=== PATIENT | female | born 1950 | race African-American/Black ===

== ENCOUNTER 2020-07-28 11:18 | Inpatient (IN) ==
[2020-07-28] MEDS ORDERED: GLUCAGON 1 MG VIAL IM PRN (12:34)
[2020-07-28] MEDS ORDERED: ONDANSETRON 4 MG/2 ML VIAL IV PRN (12:34)
[2020-07-28] MEDS ORDERED: DEXTROSE 50% 25 GM/50 ML VIAL IV PRN (12:34)
[2020-07-28] MEDS ORDERED: hydrALAZINE 20 MG/1 ML VIAL IV PRN (12:34)
[2020-07-28] MEDS ORDERED: INFLUENZA VIRUS VACCINE 0.5 ML SYRINGE IM ONE (13:10)
[2020-07-28] MEDS ORDERED: PNEUMOCOCCAL VACCINE (13 VALENT) 0.5 ML SYRINGE IM ONE (13:10)
[2020-07-28 13:32] LABS: ABG Base Excess 0.3 MMOL/L (-2.5-2.5); ABG HCO3 24.6 MMOL/L (20-26); ABG Oxygen Saturation 94.5 % (95-100); ABG PCO2 32.8 MM HG (35-48); ABG PH 7.461 (7.35-7.45); ABG PO2 67.5 MM HG (80-95); ABG TCO2 20.6 MMOL/L (23-27)
[2020-07-28 13:36] LABS: Basophils % 0.1 % (0.0-0.8); Hematocrit 37.8 VOL% (35.7-47.0); Hemoglobin 12.6 GM/DL (12.0-16.0); Immature Granulocytes % 1.7 %; Immature Granulocytes Absolute 0.26 #; Lymphocytes # 0.9 10*3/uL (1.4-4.0); Lymphocytes % 5.8 % (21.3-54.2); Mean Corpuscular HGB Conc 33.3 GM/DL (32-36); Mean Corpuscular Volume 88.9 FL (87-102); Mean Platelet Volume 10.8 FL (9.6-12.0); Monocytes % 5.8 % (1.7-12.7); Neutrophils % 86.6 % (38.7-73.9); Platelet Count 298 T/CUMM (130-400); Red Blood Count 4.25 MC/CUMM (3.8-5.5); Red Cell Distribution Width 14.4 % (9.3-17.3); White Blood Count 15.5 T/CUMM (4-12)
[2020-07-28 13:42] LABS: INR 1.2; PT Patient Result 12.4 SECS (9.8-11.9)
[2020-07-28 13:52] LABS: Calcium 9.2 MG/DL (8.5-10.1); Ferritin 1328.8 ng/ml (8-252); Osmolality,Calculated 285.3 MOS/KG (273-304); Total Protein 8.4 G/DL (6.4-8.3)
[2020-07-28 13:59] LABS: Risk Ratio 3.24; Thyroid Stimulating Hormone 0.71 uIU/ml (0.358-3.74); VLDL CHOLESTEROL 30.6 MG/DL
[2020-07-28] MEDS: SODIUM CHLORIDE 0.9% 1,000 ML IV SCH (14:45)
[2020-07-28] MEDS: cefTRIAXone 1,000 MG in SYRINGE 1 EACH IV SCH (16:29)
[2020-07-28] MEDS: ASCORBIC ACID 500 MG TABLET PO SCH (20:22)
[2020-07-28] MEDS: guaiFENesin/DM ER 600-30 MG TABLET PO SCH (20:22)
[2020-07-28] MEDS: ZINC SULFATE 220 MG CAPSULE PO SCH (20:22)
[2020-07-28] MEDS: ACETAMINOPHEN 325 MG TABLET PO PRN (20:23)
[2020-07-28] MEDS ORDERED: ENOXAPARIN 40 MG/0.4 ML SYRINGE SUBCUT SCH (21:00)
[2020-07-28 22:44] LABS: Bilirubin,Urine Negative (Negative); Blood, Urine Moderate mg/dL (Negative); Glucose,Urine (UA) Negative (Negative); Hyaline Casts,Urine 4 /LPF (0-3); Ketones,Urine 5 mg/dL (Negative); Nitrite,Urine Negative (Negative); Protein,Urine 100 MG/DL; RBC,Urine 4 /HPF (0-4); Squamous Epithelial Cell,Urine Occasional /HPF (0-10); Transitional Epi Cells,Urine Occasional /HPF (<1); Urine Appearance Slightly Hazy (Clear); Urine Color Amber (Yellow); Urine Specific Gravity 1.024 (1.001-1.035); WBC,Urine 8 /HPF (0-6)
[2020-07-29] MEDS: SODIUM CHLORIDE 0.9% 1,000 ML IV SCH ×2 (01:00→17:59)
[2020-07-29 03:50] LABS: Basophils % 0.2 % (0.0-0.8); Hematocrit 33.2 VOL% (35.7-47.0); Hemoglobin 11.2 GM/DL (12.0-16.0); Immature Granulocytes Absolute 0.47 #; Lymphocytes # 1.3 10*3/uL (1.4-4.0); Lymphocytes % 8.5 % (21.3-54.2); Mean Corpuscular HGB Conc 33.7 GM/DL (32-36); Mean Corpuscular Volume 86.9 FL (87-102); Mean Platelet Volume 11.1 FL (9.6-12.0); Monocytes % 5.7 % (1.7-12.7); Neutrophils % 82.6 % (38.7-73.9); Platelet Count 259 T/CUMM (130-400); Red Blood Count 3.82 MC/CUMM (3.8-5.5); Red Cell Distribution Width 14.2 % (9.3-17.3); White Blood Count 15.7 T/CUMM (4-12)
[2020-07-29 04:08] LABS: Calcium 8.6 MG/DL (8.5-10.1); Osmolality,Calculated 285.3 MOS/KG (273-304)
[2020-07-29 04:10] LABS: Ferritin 1704.4 ng/ml (8-252)
[2020-07-29 04:56] LABS: Hypochromasia 1+; Microcytosis 1+; Platelet Estimate Adequate
[2020-07-29] MEDS ORDERED: MAGNESIUM SULF RIDER 4 GM in PREMIX 1 EACH IV PRN (06:56)
[2020-07-29] MEDS ORDERED: MAGNESIUM SULF RIDER 2 GM in PREMIX 1 EACH IV PRN (06:56)
[2020-07-29] MEDS: AZITHROMYCIN 250 MG TABLET PO SCH (09:36)
[2020-07-29] MEDS: PANTOPRAZOLE 40 MG TABLET PO SCH (09:36)
[2020-07-29] MEDS: ASCORBIC ACID 500 MG TABLET PO SCH ×2 (09:36→21:00)
[2020-07-29] MEDS: guaiFENesin/DM ER 600-30 MG TABLET PO SCH ×2 (09:36→21:00)
[2020-07-29] MEDS: CHOLECALCIFEROL 1,000 UNIT TABLET PO SCH (09:38)
[2020-07-29] MEDS ORDERED: METOPROLOL TARTRATE 5 MG/5 ML VIAL IV ONE ×3 (10:00→10:02)
[2020-07-29] MEDS ORDERED: DILTIAZEM 50 MG/10 ML VIAL IV ONE (10:13)
[2020-07-29] MEDS ORDERED: METOPROLOL TARTRATE 5 MG/5 ML VIAL IV PRN (13:07)
[2020-07-29] MEDS: ACETAMINOPHEN 325 MG TABLET PO PRN (13:19)
[2020-07-29] MEDS ORDERED: POTASSIUM CHLORIDE 20 MEQ TABLET PO ONE (13:39)
[2020-07-29] MEDS ORDERED: dilTIAZem Drip 125 MG/125 ML PREMIX IV SCH (14:00)
[2020-07-29] MEDS ORDERED: SODIUM CHLORIDE 0.9% 500 ML IV ONE (14:10)
[2020-07-29] MEDS: METOPROLOL SUCCINATE XL 25 MG TABLET PO SCH (14:37)
[2020-07-29] MEDS: ENOXAPARIN 80 MG/0.8 ML SYRINGE SUBCUT SCH (14:37)
[2020-07-29] MEDS: cefTRIAXone 1,000 MG in SYRINGE 1 EACH IV SCH (17:49)
[2020-07-29] MEDS: ALBUTEROL INHALER 18 GM INH SCH ×3 (17:57→23:21)
[2020-07-29] MEDS: FAMOTIDINE 20 MG TABLET PO SCH (21:00)
[2020-07-29] MEDS: SOTALOL 80 MG TABLET PO SCH (21:00)
[2020-07-30] MEDS: ALBUTEROL INHALER 18 GM INH SCH ×6 (02:30→23:10)
[2020-07-30] MEDS: ENOXAPARIN 80 MG/0.8 ML SYRINGE SUBCUT SCH ×2 (02:30→14:14)
[2020-07-30] MEDS: SODIUM CHLORIDE 0.9% 1,000 ML IV SCH ×2 (03:45→13:59)
[2020-07-30 05:44] LABS: Basophils # 0.1 10*3/uL (0.0-0.2); Basophils % 0.3 % (0.0-0.8); Eosinophils % 0.2 % (0.00-10.9); Hematocrit 32.1 VOL% (35.7-47.0); Immature Granulocytes % 4.7 %; Immature Granulocytes Absolute 0.85 #; Lymphocytes # 1.9 10*3/uL (1.4-4.0); Lymphocytes % 10.6 % (21.3-54.2); Mean Corpuscular HGB Conc 34.3 GM/DL (32-36); Mean Corpuscular Volume 86.1 FL (87-102); Mean Platelet Volume 11.2 FL (9.6-12.0); Monocytes % 4.4 % (1.7-12.7); Neutrophils % 79.8 % (38.7-73.9); Platelet Count 288 T/CUMM (130-400); Red Blood Count 3.73 MC/CUMM (3.8-5.5); Red Cell Distribution Width 14.6 % (9.3-17.3); White Blood Count 18.3 T/CUMM (4-12)
[2020-07-30 06:10] LABS: Calcium 8.6 MG/DL (8.5-10.1); Osmolality,Calculated 286.8 MOS/KG (273-304)
[2020-07-30 06:18] LABS: Hypochromasia 1+; Lymphocytes 6 % (20-55); Microcytosis 1+; Ovalocytes Slight; Platelet Estimate Adequate; Segmented Neutrophils 89 % (50-85); Total Cells Counted 100
[2020-07-30 06:42] LABS: Ferritin 1642.5 ng/ml (8-252)
[2020-07-30] MEDS ORDERED: BIOTIN 10000 MCG PO SCH (09:00)
[2020-07-30] MEDS: FLUTICASONE 50 MCG NASAL SPRAY 16 GM BOTTLE BOTH NARES SCH (09:57)
[2020-07-30] MEDS: ASCORBIC ACID 500 MG TABLET PO SCH ×2 (09:58→21:50)
[2020-07-30] MEDS: FAMOTIDINE 20 MG TABLET PO SCH ×2 (09:58→21:50)
[2020-07-30] MEDS: SOTALOL 80 MG TABLET PO SCH ×2 (09:58→21:50)
[2020-07-30] MEDS: PANTOPRAZOLE 40 MG TABLET PO SCH (09:58)
[2020-07-30] MEDS: CHOLECALCIFEROL 1,000 UNIT TABLET PO SCH (09:58)
[2020-07-30] MEDS: AZITHROMYCIN 250 MG TABLET PO SCH (09:58)
[2020-07-30] MEDS ORDERED: POTASSIUM CHLORIDE 20 MEQ TABLET PO ONE (10:00)
[2020-07-30] MEDS: guaiFENesin/DM ER 600-30 MG TABLET PO SCH ×2 (10:10→21:50)
[2020-07-30] MEDS: METOPROLOL SUCCINATE XL 25 MG TABLET PO SCH (10:31)
[2020-07-30] MEDS ORDERED: SODIUM CHLORIDE 0.9% 1,000 ML IV PRN (13:20)
[2020-07-30] MEDS ORDERED: dilTIAZem Drip 125 MG/125 ML PREMIX IV PRN (13:48)
[2020-07-30] MEDS: DEXAMETHASONE 10 MG/1 ML VIAL IV SCH (14:14)
[2020-07-30] MEDS: cefTRIAXone 1,000 MG in SYRINGE 1 EACH IV SCH (15:55)
[2020-07-30] MEDS: ZINC SULFATE 220 MG CAPSULE PO SCH (21:50)
[2020-07-31] MEDS: SODIUM CHLORIDE 0.9% 1,000 ML IV SCH ×2 (02:13→02:14)
[2020-07-31] MEDS: ENOXAPARIN 80 MG/0.8 ML SYRINGE SUBCUT SCH (02:20)
[2020-07-31] MEDS: ALBUTEROL INHALER 18 GM INH SCH ×6 (03:04→23:58)
[2020-07-31 06:15] LABS: Basophils # 0.1 10*3/uL (0.0-0.2); Basophils % 0.4 % (0.0-0.8); Hematocrit 31.5 VOL% (35.7-47.0); Hemoglobin 10.6 GM/DL (12.0-16.0); Immature Granulocytes % 6.9 %; Immature Granulocytes Absolute 0.83 #; Lymphocytes # 1.4 10*3/uL (1.4-4.0); Lymphocytes % 11.2 % (21.3-54.2); Mean Corpuscular HGB Conc 33.7 GM/DL (32-36); Mean Corpuscular Volume 86.1 FL (87-102); Mean Platelet Volume 11.3 FL (9.6-12.0); Monocytes % 4.9 % (1.7-12.7); Neutrophils % 76.6 % (38.7-73.9); Platelet Count 312 T/CUMM (130-400); Red Blood Count 3.66 MC/CUMM (3.8-5.5); Red Cell Distribution Width 14.7 % (9.3-17.3); White Blood Count 12.1 T/CUMM (4-12)
[2020-07-31 06:36] LABS: Calcium 9.3 MG/DL (8.5-10.1); Osmolality,Calculated 288.8 MOS/KG (273-304)
[2020-07-31 06:41] LABS: Band Neutrophils 1 % (0-10); Hypochromasia 1+; Lymphocytes 14 % (20-55); Nucleated Red Blood Cells 1 (0-5); Segmented Neutrophils 79 % (50-85); Total Cells Counted 100
[2020-07-31 06:42] LABS: Microcytosis 1+; Platelet Estimate Normal
[2020-07-31] MEDS: SOTALOL 80 MG TABLET PO SCH ×2 (09:20→21:47)
[2020-07-31] MEDS: AZITHROMYCIN 250 MG TABLET PO SCH (09:20)
[2020-07-31] MEDS: CHOLECALCIFEROL 1,000 UNIT TABLET PO SCH (09:20)
[2020-07-31] MEDS: APIXABAN 5 MG TABLET PO SCH ×2 (09:20→21:47)
[2020-07-31] MEDS: POTASSIUM CHLORIDE 20 MEQ TABLET PO PRN (09:20)
[2020-07-31] MEDS: FLUTICASONE 50 MCG NASAL SPRAY 16 GM BOTTLE BOTH NARES SCH (09:20)
[2020-07-31] MEDS: ASCORBIC ACID 500 MG TABLET PO SCH ×2 (09:20→21:48)
[2020-07-31] MEDS: guaiFENesin/DM ER 600-30 MG TABLET PO SCH ×2 (09:20→21:47)
[2020-07-31] MEDS: PANTOPRAZOLE 40 MG TABLET PO SCH (09:20)
[2020-07-31] MEDS: FAMOTIDINE 20 MG TABLET PO SCH ×2 (09:20→21:48)
[2020-07-31] MEDS: DEXAMETHASONE 10 MG/1 ML VIAL IV SCH (09:21)
[2020-07-31] MEDS ORDERED: REMDESIVIR 200 MG in SODIUM CHLORIDE 0.9% 210 ML IV ONE (13:30)
[2020-07-31] MEDS: cefTRIAXone 1,000 MG in SYRINGE 1 EACH IV SCH (16:47)
[2020-08-01] MEDS: ALBUTEROL INHALER 18 GM INH SCH ×6 (05:09→23:55)
[2020-08-01 06:02] LABS: Basophils % 0.1 % (0.0-0.8); Hematocrit 30.1 VOL% (35.7-47.0); Hemoglobin 10.2 GM/DL (12.0-16.0); Immature Granulocytes % 4.5 %; Immature Granulocytes Absolute 0.63 #; Lymphocytes # 1.7 10*3/uL (1.4-4.0); Lymphocytes % 12.3 % (21.3-54.2); Mean Corpuscular HGB Conc 33.9 GM/DL (32-36); Mean Corpuscular Volume 86.7 FL (87-102); Mean Platelet Volume 10.9 FL (9.6-12.0); Monocytes % 5.9 % (1.7-12.7); Neutrophils % 77.2 % (38.7-73.9); Platelet Count 364 T/CUMM (130-400); Red Blood Count 3.47 MC/CUMM (3.8-5.5); Red Cell Distribution Width 14.4 % (9.3-17.3); White Blood Count 14.1 T/CUMM (4-12)
[2020-08-01 06:40] LABS: Lymphocytes 12 % (20-55); Platelet Estimate Normal; Segmented Neutrophils 87 % (50-85); Total Cells Counted 100
[2020-08-01 06:47] LABS: Calcium 8.9 MG/DL (8.5-10.1)
[2020-08-01] MEDS: DEXAMETHASONE 10 MG/1 ML VIAL IV SCH (09:09)
[2020-08-01] MEDS: CHOLECALCIFEROL 1,000 UNIT TABLET PO SCH (09:09)
[2020-08-01] MEDS: ASCORBIC ACID 500 MG TABLET PO SCH ×2 (09:10→21:04)
[2020-08-01] MEDS: APIXABAN 5 MG TABLET PO SCH ×2 (09:10→21:03)
[2020-08-01] MEDS: AZITHROMYCIN 250 MG TABLET PO SCH (09:10)
[2020-08-01] MEDS: PANTOPRAZOLE 40 MG TABLET PO SCH (09:10)
[2020-08-01] MEDS: guaiFENesin/DM ER 600-30 MG TABLET PO SCH ×2 (09:10→21:03)
[2020-08-01] MEDS: FLUTICASONE 50 MCG NASAL SPRAY 16 GM BOTTLE BOTH NARES SCH (09:10)
[2020-08-01] MEDS: SOTALOL 80 MG TABLET PO SCH ×2 (09:10→21:03)
[2020-08-01] MEDS: FAMOTIDINE 20 MG TABLET PO SCH ×2 (09:10→21:04)
[2020-08-01] MEDS: REMDESIVIR 100 MG in SODIUM CHLORIDE 0.9% 230 ML IV SCH (09:11)
[2020-08-01] MEDS: cefTRIAXone 1,000 MG in SYRINGE 1 EACH IV SCH (14:38)
[2020-08-01] MEDS: ZINC SULFATE 220 MG CAPSULE PO SCH (21:04)
[2020-08-02] MEDS: ALBUTEROL INHALER 18 GM INH SCH ×6 (04:12→22:23)
[2020-08-02 05:28] LABS: Ferritin 793.1 ng/ml (8-252)
[2020-08-02] MEDS: CHOLECALCIFEROL 1,000 UNIT TABLET PO SCH (08:56)
[2020-08-02] MEDS: guaiFENesin/DM ER 600-30 MG TABLET PO SCH ×2 (08:56→21:18)
[2020-08-02] MEDS: PANTOPRAZOLE 40 MG TABLET PO SCH (08:56)
[2020-08-02] MEDS: ASCORBIC ACID 500 MG TABLET PO SCH ×2 (08:56→21:18)
[2020-08-02] MEDS: AZITHROMYCIN 250 MG TABLET PO SCH (08:56)
[2020-08-02] MEDS: SOTALOL 80 MG TABLET PO SCH ×2 (08:57→21:19)
[2020-08-02] MEDS: APIXABAN 5 MG TABLET PO SCH ×2 (08:57→21:18)
[2020-08-02] MEDS: DEXAMETHASONE 10 MG/1 ML VIAL IV SCH (08:57)
[2020-08-02] MEDS: FLUTICASONE 50 MCG NASAL SPRAY 16 GM BOTTLE BOTH NARES SCH (08:57)
[2020-08-02] MEDS: FAMOTIDINE 20 MG TABLET PO SCH ×2 (08:57→21:18)
[2020-08-02] MEDS: REMDESIVIR 100 MG in SODIUM CHLORIDE 0.9% 230 ML IV SCH (09:00)
[2020-08-02] MEDS: cefTRIAXone 1,000 MG in SYRINGE 1 EACH IV SCH (16:44)
[2020-08-02 22:16] LABS: Specimen Source NARE
[2020-08-03] MEDS: ALBUTEROL INHALER 18 GM INH SCH ×6 (03:43→23:04)
[2020-08-03 05:38] LABS: Basophils # 0.1 10*3/uL (0.0-0.2); Basophils % 0.4 % (0.0-0.8); Eosinophils % 0.1 % (0.00-10.9); Hematocrit 33.3 VOL% (35.7-47.0); Hemoglobin 11.3 GM/DL (12.0-16.0); Immature Granulocytes % 6.1 %; Immature Granulocytes Absolute 0.83 #; Lymphocytes # 2.5 10*3/uL (1.4-4.0); Lymphocytes % 18.1 % (21.3-54.2); Mean Corpuscular HGB Conc 33.9 GM/DL (32-36); Mean Corpuscular Volume 85.4 FL (87-102); Monocytes % 7.3 % (1.7-12.7); NRBC # 0.03 10*3/uL; Platelet Count 424 T/CUMM (130-400); Red Cell Distribution Width 14.4 % (9.3-17.3); White Blood Count 13.7 T/CUMM (4-12)
[2020-08-03 06:04] LABS: Anisocytosis 1+; Band Neutrophils 3 % (0-10); Lymphocytes 26 % (20-55); Metamyelocytes 2 %; Myelocytes 2 %; Platelet Estimate Normal; Segmented Neutrophils 63 % (50-85); Total Cells Counted 100
[2020-08-03 06:10] LABS: Calcium 8.9 MG/DL (8.5-10.1)
[2020-08-03] MEDS: AZITHROMYCIN 250 MG TABLET PO SCH (09:34)
[2020-08-03] MEDS: SOTALOL 80 MG TABLET PO SCH ×2 (09:34→21:38)
[2020-08-03] MEDS: ASCORBIC ACID 500 MG TABLET PO SCH ×2 (09:34→21:50)
[2020-08-03] MEDS: FAMOTIDINE 20 MG TABLET PO SCH ×2 (09:34→21:50)
[2020-08-03] MEDS: POTASSIUM CHLORIDE 20 MEQ TABLET PO PRN ×3 (09:34→13:34)
[2020-08-03] MEDS: PANTOPRAZOLE 40 MG TABLET PO SCH (09:34)
[2020-08-03] MEDS: CHOLECALCIFEROL 1,000 UNIT TABLET PO SCH (09:34)
[2020-08-03] MEDS: DEXAMETHASONE 10 MG/1 ML VIAL IV SCH (09:35)
[2020-08-03] MEDS: guaiFENesin/DM ER 600-30 MG TABLET PO SCH ×2 (09:35→21:50)
[2020-08-03] MEDS: APIXABAN 5 MG TABLET PO SCH ×2 (09:36→21:50)
[2020-08-03] MEDS: REMDESIVIR 100 MG in SODIUM CHLORIDE 0.9% 230 ML IV SCH (09:36)
[2020-08-03] MEDS: FLUTICASONE 50 MCG NASAL SPRAY 16 GM BOTTLE BOTH NARES SCH (09:36)
[2020-08-03] MEDS: cefTRIAXone 1,000 MG in SYRINGE 1 EACH IV SCH (15:27)
[2020-08-03] MEDS: ZINC SULFATE 220 MG CAPSULE PO SCH (21:50)
[2020-08-04] MEDS: ALBUTEROL INHALER 18 GM INH SCH ×3 (03:06→11:57)
[2020-08-04 05:28] LABS: Basophils # 0.1 10*3/uL (0.0-0.2); Basophils % 0.4 % (0.0-0.8); Eosinophils % 0.1 % (0.00-10.9); Hematocrit 32.3 VOL% (35.7-47.0); Hemoglobin 10.8 GM/DL (12.0-16.0); Immature Granulocytes % 6.5 %; Immature Granulocytes Absolute 1.01 #; Lymphocytes # 2.5 10*3/uL (1.4-4.0); Lymphocytes % 15.9 % (21.3-54.2); Mean Corpuscular HGB Conc 33.4 GM/DL (32-36); Mean Corpuscular Volume 85.2 FL (87-102); Monocytes % 7.6 % (1.7-12.7); Neutrophils % 69.5 % (38.7-73.9); Platelet Count 433 T/CUMM (130-400); Red Blood Count 3.79 MC/CUMM (3.8-5.5); Red Cell Distribution Width 14.5 % (9.3-17.3); White Blood Count 15.5 T/CUMM (4-12)
[2020-08-04 05:53] LABS: Osmolality,Calculated 290.7 MOS/KG (273-304)
[2020-08-04 05:56] LABS: Hypochromasia 1+; Lymphocytes 15 % (20-55); Microcytosis 1+; Ovalocytes Slight; Platelet Estimate Adequate; Segmented Neutrophils 79 % (50-85); Total Cells Counted 100
[2020-08-04] MEDS: SOTALOL 80 MG TABLET PO SCH (09:22)
[2020-08-04] MEDS: APIXABAN 5 MG TABLET PO SCH (09:23)
[2020-08-04] MEDS: FAMOTIDINE 20 MG TABLET PO SCH (09:23)
[2020-08-04] MEDS: PANTOPRAZOLE 40 MG TABLET PO SCH (09:23)
[2020-08-04] MEDS: AZITHROMYCIN 250 MG TABLET PO SCH (09:23)
[2020-08-04] MEDS: guaiFENesin/DM ER 600-30 MG TABLET PO SCH (09:23)
[2020-08-04] MEDS: ASCORBIC ACID 500 MG TABLET PO SCH (09:23)
[2020-08-04] MEDS: CHOLECALCIFEROL 1,000 UNIT TABLET PO SCH (09:24)
[2020-08-04] MEDS: FLUTICASONE 50 MCG NASAL SPRAY 16 GM BOTTLE BOTH NARES SCH (09:24)
[2020-08-04] MEDS: DEXAMETHASONE 10 MG/1 ML VIAL IV SCH (09:25)
[2020-08-04] MEDS: REMDESIVIR 100 MG in SODIUM CHLORIDE 0.9% 230 ML IV SCH (09:25)
[2020-08-04 11:55] VITALS: BP 116/62
== END 2020-08-04 12:38 | disposition home or self-care (01) | DRG 177 ==
LOC: SUATTDRO 11:58 → N.2E 11:58
PROVIDERS: ADMIT Internal Medicine; ATTEND Internal Medicine